=== PATIENT | male | born 2000 | race Caucasian/White ===

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

== ENCOUNTER 2022-11-05 21:45 | Emergency (ER) | payer MEDICAID ==
[2022-11-05 21:52] VITALS: BP_SYST 158
[2022-11-05 22:42] VITALS: BP_SYST 128
== END 2022-11-05 22:43 | disposition home or self-care (01) ==
LOC: SED 21:45
DX: R00.2 Palpitations (principal); J45.909 Unspecified asthma, uncomplicated; F12.90 Cannabis use, unspecified, uncomplicated; Z88.2 Allergy status to sulfonamides; Z79.899 Other long term (current) drug therapy
CPT/HCPCS: 99281; 99283